=== PATIENT | male | born 1965 | race Caucasian/White ===

== ENCOUNTER 2018-01-31 16:55 | Emergency (ER) | payer SELFPAY ==
[2018-01-31] MEDS: HYDROCODONE/APAP (5/325) TAB PO (19:23)
[2018-01-31] MEDS: IBUPROFEN 600 MG TAB PO (19:23)
== END 2018-01-31 21:32 | disposition home or self-care (01) ==
LOC: FTE 16:55
DX: M25.572 Pain in left ankle and joints of left foot (principal); M79.661 Pain in right lower leg; M54.2 Cervicalgia
CPT/HCPCS: 72040; 73590; 73610; 99284-25